=== PATIENT | female | born 1990 | race Two or more races ===

== ENCOUNTER 2017-05-02 15:39 | Emergency (ER) ==
[2017-05-02 16:10] VITALS: BP 126/82; TEMP 97.8; BMI 28.3
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
[2017-05-02 17:04] LABS: HIV INTERNAL QC INTERNAL QC VALID; HIV-1 p24 ANTIGEN SCREEN NEGATIVE (NEGATIVE); HIV-1/2 ANTIBODY SCREEN NEGATIVE (NEGATIVE)
[2017-05-02 17:07] LABS: SERUM PREGNANCY INTERNAL QC INTERNAL QC VALID
== END 2017-05-02 17:37 | disposition home or self-care (01) ==
LOC: ED 15:39
DX: T74.21XA Adult sexual abuse, confirmed, initial encounter (principal)
CPT/HCPCS: 36415; 80074; 84703; 99284